=== PATIENT | female | born 1970 | race Two or more races ===

== ENCOUNTER 2021-08-23 12:04 | Outpatient (REF) | payer OTHER, SELFPAY ==
--- NOTE | ~2021-08-23 | XR_ITS ---
EXAMINATION: XR KNEE, RIGHT XR KNEE, LEFT CLINICAL INFORMATION: M06.9 - Rheumatoid arthritis, unspecified COMPARISON: None TECHNIQUE: Each knee is imaged in 4 views. There are total of 8 views. FINDINGS: Right: Probable mild osteopenia. No fracture, dislocation, destructive process, or effusion. Hoffa's fat pad appears normal. Medial and lateral knee joint compartments show no narrowing or erosive change or chondrocalcinosis. There is mild narrowing patellofemoral joint. No subchondral sclerosis or erosive change. No lateralization or tilting. Left: Probable mild osteopenia. No fracture, dislocation, destructive process, or effusion. Hoffa's fat pad appears normal. Medial and lateral knee joint compartments show no narrowing or erosive change or chondrocalcinosis. There is mild narrowing patellofemoral joint. No subchondral sclerosis or erosive change. No lateralization or tilting. XR/XR knee LT 3V IMPRESSION: -Bilateral mild narrowing patellofemoral joint. No lateralization or tilting. -Probable bilateral mild osteopenia. -No effusion. No erosive changes.
--- NOTE | ~2021-08-23 | XR_ITS ---
EXAMINATION: XR HAND, LEFT CLINICAL INFORMATION: M06.9 - Rheumatoid arthritis, unspecified COMPARISON: None TECHNIQUE: Left hand is imaged in 4 views. FINDINGS: Probable mild osteopenia. Ulnar variance is neutral. Pronator quadratus fat pad normal. No fracture or dislocation. Mild narrowing proximal radial carpal compartment. No chondrocalcinosis. Narrowing scapholunate articulation with subchondral cysts, possible fusion. MCP and interphalangeal joints show no focal significant narrowing and no erosive changes. XR/XR hand LT min 3V IMPRESSION: -Probable mild osteopenia. -Mild narrowing proximal radial carpal compartment. -Narrowing scapholunate articulation with subchondral cysts and possible fusion.
--- NOTE | ~2021-08-23 | XR_ITS ---
EXAMINATION: XR KNEE, RIGHT XR KNEE, LEFT CLINICAL INFORMATION: M06.9 - Rheumatoid arthritis, unspecified COMPARISON: None TECHNIQUE: Each knee is imaged in 4 views. There are total of 8 views. FINDINGS: Right: Probable mild osteopenia. No fracture, dislocation, destructive process, or effusion. Hoffa's fat pad appears normal. Medial and lateral knee joint compartments show no narrowing or erosive change or chondrocalcinosis. There is mild narrowing patellofemoral joint. No subchondral sclerosis or erosive change. No lateralization or tilting. Left: Probable mild osteopenia. No fracture, dislocation, destructive process, or effusion. Hoffa's fat pad appears normal. Medial and lateral knee joint compartments show no narrowing or erosive change or chondrocalcinosis. There is mild narrowing patellofemoral joint. No subchondral sclerosis or erosive change. No lateralization or tilting. XR/XR knee RT 3V IMPRESSION: -Bilateral mild narrowing patellofemoral joint. No lateralization or tilting. -Probable bilateral mild osteopenia. -No effusion. No erosive changes.
[2021-08-23 13:40] LABS: MANUAL DIFF FLAG NO
[2021-08-23 13:52] LABS: Basophils Absolute Auto 0.1 X10*3/uL (0.0-0.2); Eosinophils Absolute Auto 0.4 X10*3/uL (0.0-0.4); Eosinophils Percent Auto 5.1 % (0-4); Hematocrit 32.9 % (37.0-47.0); Hemoglobin 9.9 g/dl (12.0-16.0); Imm Gran Abs Auto 0.02 X10*3/uL (0.00-0.03); Imm Gran Pct Auto 0.3 % (0.0-0.4); Lymphocytes Absolute Auto 1.5 X10*3/uL (1.2-4.9); Lymphocytes Percent Auto 21.5 % (20-40); Mean Corpuscular HGB Conc 30.1 g/dl (31.0-35.0); Mean Corpuscular Hemoglobin 23.6 pg (27.0-33.0); Mean Corpuscular Volume 78.3 fL (80.0-98.0); Mean Platelet Volume 10.1 fL (9.4-12.3); Monocytes Absolute Auto 0.6 X10*3/uL (0.1-1.2); Monocytes Percent Auto 8.9 % (2-11); Neutrophils Absolute Auto 4.5 x10*3/uL (2.0-8.3); Neutrophils Percent Auto 63.2 % (45-73); Platelet Count 321 X10*3/uL (160-400); Red Cell Distribution Width 16.6 % (11.0-16.0); White Blood Count 7.1 X10*3/uL (4.8-10.8)
[2021-08-23 14:30] LABS: Alanine Aminotransferase 15 U/L (0-31); Albumin Level 3.8 g/dL (3.5-5.0); Alkaline Phosphatase 75 U/L (39-117); Anion Gap 10 (12-20); Aspartate Amino Transferase 16 U/L (5-31); Bilirubin Total 0.4 mg/dL (0.0-1.0); Blood Urea Nitrogen 11 mg/dL (9-16); C Reactive Protein 1.24 mg/dL (< or = 0.50); Calcium 8.4 mg/dL (8.4-10.2); Carbon Dioxide 26 mmol/L (22-29); Chloride 105 mmol/L (96-108); Estimated Glomerular Filt Rate > 60; Glucose Random 94 mg/dL (60-115); Potassium 4.3 mmol/L (3.3-5.1); Rheumatoid Factor < 15.0 IU/mL (<15.0); Sodium 137 mmol/L (135-145); Total Protein 7.9 g/dL (6.5-8.0)
[2021-08-23 14:36] LABS: Erythrocyte Sedimentation Rate 36 MM/HR (0-20)
[2021-08-24 08:24] LABS: HBS Num1 5.67 mIU/mL (0-7.99); HBc Num1 0.22 S/CO (0.00-0.79); HBsAGNum1 0.19 S/CO (0.00-0.99); Hepatitis B Core Antibody Nonreactive (Nonreactive); Hepatitis B Surface Antigen Negative (Negative); ~HepC Num1 0.56 S/CO (0.00-0.79); ~Hepatitis B Surface Antibody NONREACTIVE (Nonreactive); ~Hepatitis C Antibody Nonreactive (Nonreactive)
[2021-08-25 07:17] LABS: Hepatitis A Antibody IgM 0.18 Index (0-0.79); ~Hepatitis A Antibody IgM Nonreactive (Nonreactive)
[2021-08-25 15:45] LABS: Cyclic Citrullinated Peptide <16 UNITS
== END 2021-08-23 12:05 | disposition home or self-care (01) ==
LOC: HO.10HDL 12:04
PROVIDERS: Visit Provider Internal Medicine Rheumatology
DX: M06.9 Rheumatoid arthritis, unspecified (principal); Z79.899 Other long term (current) drug therapy
CPT/HCPCS: 36415; 73130; 73562; 80053; 85025; 85652; 86140; 86200; 86431; 86704; 86706; 86709; 86803; 87340; 99212

== ENCOUNTER 2021-09-07 12:39 | Outpatient (REF) | payer OTHER, SELFPAY ==
[2021-09-07 13:40] LABS: MANUAL DIFF FLAG NO
[2021-09-07 13:52] LABS: Basophils Absolute Auto 0.1 X10*3/uL (0.0-0.2); Basophils Percent Auto 0.8 % (0-2); Eosinophils Absolute Auto 0.3 X10*3/uL (0.0-0.4); Eosinophils Percent Auto 4.5 % (0-4); Hematocrit 32.5 % (37.0-47.0); Hemoglobin 9.6 g/dl (12.0-16.0); Imm Gran Abs Auto 0.03 X10*3/uL (0.00-0.03); Imm Gran Pct Auto 0.4 % (0.0-0.4); Lymphocytes Absolute Auto 1.9 X10*3/uL (1.2-4.9); Lymphocytes Percent Auto 25.9 % (20-40); Mean Corpuscular HGB Conc 29.5 g/dl (31.0-35.0); Mean Corpuscular Hemoglobin 22.9 pg (27.0-33.0); Mean Corpuscular Volume 77.6 fL (80.0-98.0); Monocytes Absolute Auto 0.6 X10*3/uL (0.1-1.2); Monocytes Percent Auto 8.4 % (2-11); Neutrophils Absolute Auto 4.3 x10*3/uL (2.0-8.3); Platelet Count 313 X10*3/uL (160-400); Red Blood Count 4.19 X10*6/uL (4.20-5.50); Red Cell Distribution Width 16.3 % (11.0-16.0); White Blood Count 7.2 X10*3/uL (4.8-10.8)
[2021-09-07 14:10] LABS: Iron 27 mcg/dL (30-160); Percent Iron Saturation 6 % (15-50); Total Iron Binding Capacity 432 mcg/dL (228-428); Unsaturated Iron Binding 405 ug/dL
[2021-09-07 15:28] LABS: Vitamin B12 268 pg/mL (200-900)
[2021-09-09 14:27] LABS: Haptoglobin 139 mg/dL (43-212)
== END 2021-09-07 12:40 | disposition home or self-care (01) ==
LOC: HO.10HDL 12:39
PROVIDERS: Visit Provider Internal Medicine Rheumatology
DX: D64.9 Anemia, unspecified (principal)
CPT/HCPCS: 36415; 82607; 83010; 83540; 85025

== ENCOUNTER → 2021-09-18 15:53 | Outpatient (BNVA) | payer OTHER, SELFPAY | PROVIDERS: PCP Student in an Organized Health Care Education/Training Program; Visit Provider Internal Medicine Rheumatology | DX: M06.9 Rheumatoid arthritis, unspecified (principal); D50.9 Iron deficiency anemia, unspecified; Z79.899 Other long term (current) drug therapy | CPT/HCPCS: 99212 ==